=== PATIENT | female | born 1930 | race Caucasian/White ===

== ENCOUNTER 2017-12-04 05:39 | Inpatient (IN) | payer MEDICARE ==
[~2017-12-04] VITALS: Ht 160 cm; Wt 74.8 kg
[2017-12-04 06:51] LABS: BASOPHILS % (AUTO) 0.3 % (0.0-5.0); EOSINOPHILS % (AUTO) 0.5 % (0.0-8.0); HEMATOCRIT 37.6 % (36-48); LYMPHOCYTES % (AUTO) 26.4 % (21.0-51.0); MEAN CORPUSCULAR HEMOGLOBIN 29.3 pg (27.0-33.0); MEAN CORPUSCULAR VOLUME 88.7 fL (79-99); MONOCYTES % (AUTO) 2.7 % (3.0-13.0); NEUTROPHILS % (AUTO) 70.1 % (40.0-77.0); PLATELET COUNT (AUTO) 271 K/uL (130-400); RED BLOOD CELL COUNT(AUTO) 4.24 MIL/uL (4.00-5.50); RED CELL DISTRIBUTION WIDTH 14.8 % (11.0-15.5); WHITE BLOOD COUNT (AUTO) 12.7 K/uL (4.8-10.8)
[2017-12-04 07:05] LABS: CREATININE 0.8 mg/dL (0.5-1.5); POTASSIUM 4.7 mmol/L (3.5-5.1)
[2017-12-04 07:12] LABS: BILIRUBIN,TOTAL 0.4 mg/dL (0.2-1.0)
[2017-12-04 07:27] LABS: ALBUMIN 2.7 g/dL (3.5-5.0); TOTAL PROTEIN, SERUM 6.3 g/dL (6.0-8.3)
[2017-12-04] MEDS ORDERED: AZITHROMYCIN 250 MG TABLET PO ONE (08:23)
[2017-12-04] MEDS ORDERED: CEFTRIAXONE SODIUM 1 GM ONE (08:23)
[2017-12-04] MEDS ORDERED: ZOSYN 3.375GM+NS 50ML 50 ML IV ONE (09:31)
[2017-12-04] MEDS ORDERED: VANCOMYCIN 1GM+NS 250ML 250 ML IV ONE (09:31)
[2017-12-04] MEDS ORDERED: SODIUM CHLORIDE 0.9% 250 ML IV ONE (09:31)
[2017-12-04 11:13] VITALS: BP 128/63
[2017-12-04] MEDS: DEXTROSE 5 % AND 0.9 % NACL 1,000 ML IV SCH (12:15)
[2017-12-04] MEDS ORDERED: ACETAMINOPHEN 325 MG TAB PO PRN ×2 (12:15→19:30)
[2017-12-04 16:18] VITALS: BP 131/80
[2017-12-04] MEDS ORDERED: ALBU2.5V2 IH (19:08)
[2017-12-04] MEDS ORDERED: ACET325T51 PO (19:08)
[2017-12-04] MEDS ORDERED: ACET-66 PO (19:08)
[2017-12-04] MEDS ORDERED: DOCU100T PO (19:08)
[2017-12-04] MEDS ORDERED: ATOR10 PO (19:08)
[2017-12-04] MEDS: IPRATROPIUM/ALBUTEROL SULFATE 3 ML SOLUTION IH SCH ×2 (19:13→23:45)
[2017-12-04] MEDS ORDERED: LOPERAMIDE HCL 2 MG CAP PO PRN (19:30)
[2017-12-04] MEDS ORDERED: ACETAMINOPHEN EXTRA STRENGTH 500 MG TABLET PO PRN (19:30)
[2017-12-04] MEDS ORDERED: LACT10SO PO (19:38)
[2017-12-04] MEDS ORDERED: ERGO500014 PO (19:38)
[2017-12-04] MEDS ORDERED: MEMA10TA20 PO (19:38)
[2017-12-04] MEDS ORDERED: LOPE2CAP PO (19:38)
[2017-12-04] MEDS ORDERED: LEVO150T11 PO (19:38)
[2017-12-04 20:00] VITALS: BP 122/58
[2017-12-04] MEDS ORDERED: LACTULOSE 20 GM/30 ML UDCUP PO PRN (20:00)
[2017-12-04] MEDS ORDERED: DOCUSATE SODIUM 100 MG CAP PO PRN (20:00)
[2017-12-04] MEDS ORDERED: PHARMACY COMMUNICATION MISC SCH (21:00)
[2017-12-04] MEDS: ZOSYN 3.375GM+NS 50ML 50 ML IV SCH (22:24)
[2017-12-04] MEDS: MEMANTINE HCL 5 MG TABLET PO SCH (22:25)
[2017-12-04] MEDS: ATORVASTATIN CALCIUM 10 MG TABLET PO SCH (22:25)
[2017-12-04] MEDS: HEPARIN SODIUM 5000UNIT/ML 1ML VIAL SQ SCH (22:43)
[2017-12-05] VITALS: BP 138/62
[2017-12-05 04:00] VITALS: BP 140/72
[2017-12-05] MEDS: DEXTROSE 5 % AND 0.9 % NACL 1,000 ML IV SCH ×3 (05:04→23:55)
[2017-12-05] MEDS: IPRATROPIUM/ALBUTEROL SULFATE 3 ML SOLUTION IH SCH ×4 (06:23→23:47)
[2017-12-05] MEDS: LEVOTHYROXINE 150 MCG TABLET PO SCH (07:19)
[2017-12-05 07:49] VITALS: BP 123/55
[2017-12-05] MEDS ORDERED: VANCOMYCIN 1GM+NS 250ML 250 ML IV SCH (09:00)
[2017-12-05] MEDS: ZOSYN 3.375GM+NS 50ML 50 ML IV SCH ×2 (09:51→23:54)
[2017-12-05] MEDS: ERGOCALCIFEROL (VITAMIN D2) 50,000 UNIT CAPSULE PO SCH (09:51)
[2017-12-05] MEDS: MEMANTINE HCL 5 MG TABLET PO SCH ×2 (09:51→23:54)
[2017-12-05] MEDS: HEPARIN SODIUM 5000UNIT/ML 1ML VIAL SQ SCH (10:10)
[2017-12-05 12:51] VITALS: BP 122/62
[2017-12-05 15:48] VITALS: BP 142/92
[2017-12-05 20:00] VITALS: BP 144/77
[2017-12-05] MEDS: ATORVASTATIN CALCIUM 10 MG TABLET PO SCH (23:54)
[2017-12-06] VITALS (7 sets, daily range): BP systolic 127–150; BP diastolic 56–74
[2017-12-06] MEDS: LEVOFLOXACIN 500 MG/D5W 100 ML 100 ML IV SCH ×2 (06:11→07:41)
[2017-12-06] MEDS: IPRATROPIUM/ALBUTEROL SULFATE 3 ML SOLUTION IH SCH ×4 (06:20→23:48)
[2017-12-06] MEDS: LEVOTHYROXINE 150 MCG TABLET PO SCH (07:41)
[2017-12-06] MEDS: MEMANTINE HCL 5 MG TABLET PO SCH ×2 (07:42→22:52)
[2017-12-06] MEDS: HEPARIN SODIUM 5000UNIT/ML 1ML VIAL SQ SCH ×3 (07:51→22:53)
[2017-12-06] MEDS: ERGOCALCIFEROL (VITAMIN D2) 50,000 UNIT CAPSULE PO SCH (09:00)
[2017-12-06] MEDS ORDERED: PHARMACY COMMUNICATION MISC SCH (15:00)
[2017-12-06] MEDS: DEXTROSE 5 % AND 0.9 % NACL 1,000 ML IV SCH (16:39)
[2017-12-06] MEDS: ATORVASTATIN CALCIUM 10 MG TABLET PO SCH (22:52)
[2017-12-07 03:00] VITALS: BP 149/62
[2017-12-07] MEDS: IPRATROPIUM/ALBUTEROL SULFATE 3 ML SOLUTION IH SCH ×2 (06:20→11:33)
[2017-12-07] MEDS: LEVOTHYROXINE 150 MCG TABLET PO SCH (06:42)
[2017-12-07 07:00] VITALS: BP 134/66
[2017-12-07] MEDS: ERGOCALCIFEROL (VITAMIN D2) 50,000 UNIT CAPSULE PO SCH (08:20)
[2017-12-07] MEDS: MEMANTINE HCL 5 MG TABLET PO SCH (08:21)
[2017-12-07] MEDS: HEPARIN SODIUM 5000UNIT/ML 1ML VIAL SQ SCH (08:22)
[2017-12-07 11:00] VITALS: BP 134/63
[2017-12-07 16:00] VITALS: BP 134/60
== END 2017-12-07 17:18 | disposition home or self-care (01) | DRG 194 ==
LOC: EDH 05:39 → 3CH 09:15
PROVIDERS: ADMIT Internal Medicine Pulmonary Disease; ATTEND Internal Medicine Pulmonary Disease
DX: J18.9 Pneumonia, unspecified organism (principal); E46 Unspecified protein-calorie malnutrition; F03.90 Unspecified dementia, unspecified severity, without behavioral disturbance, psychotic disturbance, mood disturbance, and anxiety; E03.9 Hypothyroidism, unspecified; Z68.29 Body mass index [BMI] 29.0-29.9, adult
CPT/HCPCS: 36415; 71045; 80053; 85025; 87040; 92610; 94640; 94664; 94667; 94668; 99291; A6453; J0696; J1644; J1956; J2543; J3370; J7030; J7042